=== PATIENT | female | born 1940 | race Two or more races ===

== ENCOUNTER 2016-09-26 16:47 | Inpatient (IN) | payer OTHER ==
[~2016-09-26] VITALS: Ht 162.6 cm; Wt 76.7 kg
[2016-09-26 16:48] VITALS: BP 125/59
[2016-09-26] MEDS ORDERED: Morphine Sulfate 4mg/ml Inj IVP ONE (17:00)
[2016-09-26 17:26] LABS: BASOPHILS % (AUTO) 1.5 % (0.0-2.0); EOSINOPHILS % (AUTO) 12.7 % (0.0-3.0); LYMPHOCYTES % (AUTO) 21.7 % (20.0-45.0); MEAN CORPUSCULAR HEMOGLOBIN 29.4 PG (27.0-31.0); MEAN CORPUSCULAR VOLUME 92 FL (80-99); MEAN PLATELET VOLUME 9.3 FL (6.5-10.1); MONOCYTES % (AUTO) 5.9 % (1.0-10.0); NEUTROPHILS % (AUTO) 58.2 % (45.0-75.0); PLATELET COUNT 140 K/UL (150-450); RED BLOOD COUNT 4.22 M/UL (4.20-5.40); RED CELL DISTRIBUTION WIDTH 13.1 % (11.6-14.8); WHITE BLOOD COUNT 10.4 K/UL (4.8-10.8)
[2016-09-26 17:30] VITALS: BP 122/45
[2016-09-26 17:37] LABS: PROTHROMBIN TIME 10.4 SEC (9.30-11.50)
[2016-09-26 17:46] LABS: TROPONIN I < 0.30 ng/mL (<=0.30)
[2016-09-26 17:47] LABS: ALANINE AMINOTRANSFERASE 33 U/L (3-33); ALBUMIN/GLOBULIN RATIO 1.9 (1.0-2.7); ANION GAP 17 (5-15); ASPARTATE AMINO TRANSFERASE 59 U/L (5-40); CALCIUM 9.2 mg/dL (8.6-10.2); CARBON DIOXIDE 23 mEQ/L (20-30); CHLORIDE 97 mEQ/L (98-107); CREATININE 0.9 mg/dL (0.5-0.9); HEMOLYSIS 4; POTASSIUM 3.8 mEQ/L (3.4-4.9); SODIUM 137 mEQ/L (135-145); TOTAL PROTEIN 6.7 g/dL (6.6-8.7)
[2016-09-26 17:58] LABS: CKMB < 1.5 ng/mL (< 3.8)
[2016-09-26 18:13] LABS: LIPASE 1161 U/L (< 60)
[2016-09-26 18:30] VITALS: BP 129/74
[2016-09-26] MEDS ORDERED: OMEPRAZOLE20 M2 ORAL (18:47)
[2016-09-26] MEDS ORDERED: NITROGLYCERIN0.4 MG SL (18:48)
[2016-09-26 19:28] VITALS: BP 134/61
--- NOTE | 2016-09-26 19:35 | Emergency Room Report ---
History of Present Illness General Chief Complaint: Chest Pain Source: Patient Present Illness HPI Patient is a 76-year-old female who presented after increased epigastric pain and chest pain. Patient prior history of aortic valve replacement. Patient onset of pain approximately one to 2 hours prior to arrival. Patient had no radiation of pain. Patient reported having some nausea without vomiting. She also had some epigastric pain which he describes a sharp sensation. The patient been given aspirin as well as nitroglycerin by paramedics without any change. Patient was subsequently given morphine IV with minimal improvement. Patient was noted to have no recent fever. She had prior history of cholecystectomy. She had a porcine valve placed at [facility]. Allergies: Coded Allergies: PENICILLINS (Verified Allergy, Intermediate, 09/26/16) Patient History Past Medical History: see triage record Now: No Reviewed Nursing Documentation: PMH: Agreed, PSxH: Agreed Nursing Documentation-PMH Hx Cardiac Problems: Yes Review of Systems All Other Systems: negative except mentioned in HPI Physical Exam Vital Signs Date Time Temp Pulse Resp B/P Pulse Ox O2 Delivery O2 Flow Rate FiO2 09/26/16 16:41 16 Nasal Cannula 09/26/16 16:41 98.1 82 100/60 98 Sp02 EP Interpretation: reviewed, normal General Appearance: normal inspection, well appearing, alert, GCS 15, moderate distress Head: atraumatic ENT: normal ENT inspection, hearing grossly normal, normal voice Neck: normal inspection, full range of motion, supple, no bony tend Respiratory: normal inspection, lungs clear, normal breath sounds, no respiratory distress, no retraction, no wheezing Cardiovascular #1: regular rate, rhythm, no edema Gastrointestinal: normal inspection, normal bowel sounds, soft, no guarding, no hernia, tenderness - epigastric tenderness Genitourinary: no CVA tenderness Musculoskeletal: normal inspection, back normal, normal range of motion Neurologic: normal inspection, alert, responsive, speech normal Psychiatric: normal inspection, judgement/insight normal, mood/affect normal Skin: normal inspection, normal color, no rash Medical Decision Making Diagnostic Impression: Primary Impression: Chest pain Additional Impressions: Pancreatitis, acute Aortic valve replaced ER Course Patient is a 76-year-old female who presented after increased chest pain. Patient gradual onset of symptoms over the past one to 2 hours.Differential diagnosis included but was not limited to acute coronary syndrome, pulmonary embolism, pneumonia, aortic dissection, shingles, pneumothorax, aortic dissection, esophageal rupture, pericarditis. Because of complexity of patient' s case laboratory testing and imaging studies were ordered.I laboratory studies were notable for negative troponin as well as elevated lipase. The patient was noted to have prior history of aortic valve replacement. A CT of the chest was performed because of the patient's history of chest pain onset. CT the chest read by radiology showed no evidence of aortic dissection with aortic valve ectasia. There is no evident pulmonary embolism.Patient was given IV fluids as well as IV pain medications. Dr. Rancho Espinal was contacted for inpatient management Labs Test 09/26/16 17:00 09/26/16 21:44 White Blood Count 10.4 K/UL (4.8-10.8) Red Blood Count 4.22 M/UL (4.20-5.40) Hemoglobin 12.4 G/DL (12.0-16.0) Hematocrit 38.7 % (37.0-47.0) Mean Corpuscular Volume 92 FL (80-99) Mean Corpuscular Hemoglobin 29.4 PG (27.0-31.0) Mean Corpuscular Hemoglobin Concent 32.0 G/DL (32.0-36.0) Red Cell Distribution Width 13.1 % (11.6-14.8) Platelet Count 140 K/UL (150-450) Mean Platelet Volume 9.3 FL (6.5-10.1) Neutrophils (%) (Auto) 58.2 % (45.0-75.0) Lymphocytes (%) (Auto) 21.7 % (20.0-45.0) Monocytes (%) (Auto) 5.9 % (1.0-10.0) Eosinophils (%) (Auto) 12.7 % (0.0-3.0) Basophils (%) (Auto) 1.5 % (0.0-2.0) Prothrombin Time 10.4 SEC (9.30-11.50) Prothromb Time International Ratio 1.0 (0.9-1.1) Activated Partial Thromboplast Time 24 SEC (23-33) Sodium Level 137 mEQ/L (135-145) Potassium Level 3.8 mEQ/L (3.4-4.9) Chloride Level 97 mEQ/L (98-107) Carbon Dioxide Level 23 mEQ/L (20-30) Anion Gap 17 (5-15) Blood Urea Nitrogen 19 mg/dL (7-23) Creatinine 0.9 mg/dL (0.5-0.9) Estimat Glomerular Filtration Rate mL/min (>60) Glucose Level 147 mg/dL (74-106) Calcium Level 9.2 mg/dL (8.6-10.2) Total Bilirubin 0.6 mg/dL (0.0-1.2) Aspartate Amino Transf (AST/SGOT) 59 U/L (5-40) Alanine Aminotransferase (ALT/SGPT) 33 U/L (3-33) Alkaline Phosphatase 74 U/L (35-104) Total Creatine Kinase 36 U/L (26-140) Creatine Kinase MB < 1.5 ng/mL (< 3.8) Creatine Kinase MB Relative Index Pro-B-Type Natriuretic Peptide 213 pg/mL (0-450) Total Protein 6.7 g/dL (6.6-8.7) Albumin 4.4 g/dL (3.5-5.2) Globulin 2.3 g/dL Albumin/Globulin Ratio 1.9 (1.0-2.7) Lipase 1161 U/L (< 60) Troponin I < 0.30 ng/mL (<=0.30) EKG Diagnostic Results Rate: normal Rhythm: NSR ST Segments: no acute changes Chest X-Ray Diagnostic Results EP Interpretation: Yes Findings: no consolidation, no effusion, no pneumothorax, no acute cardiopulmonary disease Number of Views: 1 Last Vital Signs Date Time Temp Pulse Resp B/P Pulse Ox O2 Delivery O2 Flow Rate FiO2 09/26/16 17:33 98.1 09/26/16 16:48 82 18 Room Air 09/26/16 16:48 125/59 99 Status: unchanged Disposition: ADMITTED INPATIENT Condition: Serious Referrals: NON PHYSICIAN (PCP) Keny Spear Sep 26, 2016 19:35
[2016-09-26] MEDS ORDERED: Miralax 17gm pkt ORAL PRN (20:15)
[2016-09-26] MEDS ORDERED: DuoNeb 0.5-3(2.5)mg/3ml neb HHN PRN (20:15)
[2016-09-26] MEDS ORDERED: Morphine Sulfate 2mg/ml Inj IVP PRN (20:15)
[2016-09-26] MEDS ORDERED: Nitroglycerin Subl 0.4mg tab (Bottle Of 25) SL PRN (20:15)
[2016-09-26] MEDS ORDERED: Diltiazem 25mg/5ml IV PRN (20:15)
[2016-09-26] MEDS ORDERED: Ketorolac 30mg Inj IV PRN (20:15)
[2016-09-26] MEDS ORDERED: Enalaprilat 2.5mg/2ml Inj IV PRN (20:15)
[2016-09-26 21:10] VITALS: BP 137/78
[2016-09-26] MEDS: Heparin 5000 units/ml inj SUBQ SCH (21:41)
[2016-09-26 21:59] LABS: TROPONIN I < 0.30 ng/mL (<=0.30)
[2016-09-27 00:20] VITALS: BP 99/64
[2016-09-27 04:00] VITALS: BP 120/72
[2016-09-27 05:21] LABS: BASOPHILS % (AUTO) 0.9 % (0.0-2.0); EOSINOPHILS % (AUTO) 7.8 % (0.0-3.0); LYMPHOCYTES % (AUTO) 12.7 % (20.0-45.0); MEAN CORPUSCULAR HEMOGLOBIN 29.5 PG (27.0-31.0); MEAN CORPUSCULAR HGB CONC 32.7 G/DL (32.0-36.0); MEAN CORPUSCULAR VOLUME 90 FL (80-99); MEAN PLATELET VOLUME 10.1 FL (6.5-10.1); NEUTROPHILS % (AUTO) 73.6 % (45.0-75.0); PLATELET COUNT 120 K/UL (150-450); RED BLOOD COUNT 4.32 M/UL (4.20-5.40); WHITE BLOOD COUNT 8.7 K/UL (4.8-10.8)
[2016-09-27 05:26] LABS: PROTHROMBIN TIME 10.1 SEC (9.30-11.50)
[2016-09-27 05:34] LABS: TROPONIN I < 0.30 ng/mL (<=0.30)
[2016-09-27 05:42] LABS: CRP QUANT 0.9 mg/dL (< 0.5)
[2016-09-27 05:48] LABS: THYROID STIMULATING HORMONE 4.31 uIU/mL (0.300-4.500)
[2016-09-27 07:28] VITALS: BP 133/68
[2016-09-27] MEDS: Heparin 5000 units/ml inj SUBQ SCH ×2 (08:02→20:58)
[2016-09-27] MEDS: Aspirin Baby 81mg ORAL SCH (08:03)
--- NOTE | 2016-09-27 09:44 | Diagnostic Imaging Report ---
Indications: Chest pain Technique: Portable AP chest Findings: Comparison: None Suboptimal inspiration limits evaluation. Cardiac silhouette partially obscured. Pulmonary vasculature within normal limits. Is less portions of lungs and pleura clear except for suggestion of linear density left base. Sternal wires, aortic valve prosthesis, aortic arch calcification. IMPRESSION: Suggestion of subsegmental atelectasis versus scarring left lung base No other evidence of acute disease, limited as described. Upright PA and lateral chest radiographs with better inspiratory effort and optimal technique recommended for more complete evaluation. Previous open heart surgery with aortic valve replacement Aortosclerosis
[2016-09-27 10:51] LABS: TROPONIN I < 0.30 ng/mL (<=0.30)
[2016-09-27 11:27] VITALS: BP 133/76
--- NOTE | 2016-09-27 13:55 | History & Physical ---
History and Physical History & Physicial Dictated for Int Med-Dr sEpinal no. [id number]. TESHA HATFIELD Sep 27, 2016 13:55
--- NOTE | 2016-09-27 13:58 | Cardiac Electrophysiology PN ---
Subjective Subjective [id number] Objective Last 24 Hour Vital Signs Date Time Temp Pulse Resp B/P Pulse Ox O2 Delivery O2 Flow Rate FiO2 09/27/16 12:00 61 09/27/16 11:27 97.7 67 18 133/76 97 Room Air 09/27/16 08:00 67 09/27/16 07:28 97.0 68 18 133/68 99 Room Air 09/27/16 04:00 97.7 58 20 120/72 95 Room Air 09/27/16 04:00 55 09/27/16 00:20 97.3 77 20 99/64 93 Room Air 09/27/16 00:00 75 09/26/16 22:32 96.8 09/26/16 21:10 96.3 72 20 137/78 97 Room Air 09/26/16 19:41 98.1 78 19 134/61 99 Nasal Cannula 2.0 09/26/16 19:28 78 19 134/61 99 Nasal Cannula 2.0 09/26/16 18:30 81 16 129/74 99 Room Air 09/26/16 17:33 98.1 09/26/16 17:30 89 19 122/45 99 Room Air 09/26/16 16:48 82 18 Room Air 09/26/16 16:48 98.1 88 18 125/59 99 Room Air 09/26/16 16:45 61 18 125/59 99 Room Air 09/26/16 16:41 98.1 82 16 100/60 98 Nasal Cannula 09/26/16 16:41 16 Nasal Cannula Laboratory Tests Test 09/26/16 17:00 09/26/16 21:44 09/27/16 04:45 09/27/16 10:10 White Blood Count 10.4 K/UL (4.8-10.8) 8.7 K/UL (4.8-10.8) Red Blood Count 4.22 M/UL (4.20-5.40) 4.32 M/UL (4.20-5.40) Hemoglobin 12.4 G/DL (12.0-16.0) 12.8 G/DL (12.0-16.0) Hematocrit 38.7 % (37.0-47.0) 39.1 % (37.0-47.0) Mean Corpuscular Volume 92 FL (80-99) 90 FL (80-99) Mean Corpuscular Hemoglobin 29.4 PG (27.0-31.0) 29.5 PG (27.0-31.0) Mean Corpuscular Hemoglobin Concent 32.0 G/DL (32.0-36.0) 32.7 G/DL (32.0-36.0) Red Cell Distribution Width 13.1 % (11.6-14.8) 13.0 % (11.6-14.8) Platelet Count 140 K/UL (150-450) L 120 K/UL (150-450) L Mean Platelet Volume 9.3 FL (6.5-10.1) 10.1 FL (6.5-10.1) Neutrophils (%) (Auto) 58.2 % (45.0-75.0) 73.6 % (45.0-75.0) Lymphocytes (%) (Auto) 21.7 % (20.0-45.0) 12.7 % (20.0-45.0) L Monocytes (%) (Auto) 5.9 % (1.0-10.0) 5.0 % (1.0-10.0) Eosinophils (%) (Auto) 12.7 % (0.0-3.0) H 7.8 % (0.0-3.0) H Basophils (%) (Auto) 1.5 % (0.0-2.0) 0.9 % (0.0-2.0) Prothrombin Time 10.4 SEC (9.30-11.50) 10.1 SEC (9.30-11.50) Prothromb Time International Ratio 1.0 (0.9-1.1) 1.0 (0.9-1.1) Activated Partial Thromboplast Time 24 SEC (23-33) 24 SEC (23-33) Sodium Level 137 mEQ/L (135-145) Potassium Level 3.8 mEQ/L (3.4-4.9) Chloride Level 97 mEQ/L (98-107) L Carbon Dioxide Level 23 mEQ/L (20-30) Anion Gap 17 (5-15) H Blood Urea Nitrogen 19 mg/dL (7-23) Creatinine 0.9 mg/dL (0.5-0.9) Estimat Glomerular Filtration Rate mL/min (>60) Glucose Level 147 mg/dL (74-106) H Calcium Level 9.2 mg/dL (8.6-10.2) Total Bilirubin 0.6 mg/dL (0.0-1.2) Aspartate Amino Transf (AST/SGOT) 59 U/L (5-40) H Alanine Aminotransferase (ALT/SGPT) 33 U/L (3-33) Alkaline Phosphatase 74 U/L (35-104) Total Creatine Kinase 36 U/L (26-140) Creatine Kinase MB < 1.5 ng/mL (< 3.8) Creatine Kinase MB Relative Index Troponin I < 0.30 ng/mL (<=0.30) < 0.30 ng/mL (<=0.30) < 0.30 ng/mL (<=0.30) < 0.30 ng/mL (<=0.30) Pro-B-Type Natriuretic Peptide 213 pg/mL (0-450) Total Protein 6.7 g/dL (6.6-8.7) Albumin 4.4 g/dL (3.5-5.2) Globulin 2.3 g/dL Albumin/Globulin Ratio 1.9 (1.0-2.7) Lipase 1161 U/L (< 60) H C-Reactive Protein, Quantitative 0.9 mg/dL (< 0.5) H Triglycerides Level 91 mg/dL (< 150) Cholesterol Level Pending LDL Cholesterol Pending HDL Cholesterol 62 mg/dL (> 60) H Cholesterol/HDL Ratio Pending Thyroid Stimulating Hormone (TSH) 4.310 uIU/mL (0.300-4.500) WESTON PETTIT Sep 27, 2016 13:57
[2016-09-27 15:27] LABS: CHOLESTEROL/HDL RATIO 2.9 (3.3-4.4)
--- NOTE | 2016-09-27 15:45 | Consultation ---
History of Present Illness General Date patient seen: Sep 27, 2016 Time patient seen: 15:00 Chief Complaint: Chest Pain Referring physician: dr Espinal Reason for Consultation: inpatient management Present Illness HPI 76-year-old female presented with increased epigastric and chest pain. prior history of aortic valve replacement. Onset of pain approximately one to 2 hours prior to arrival pain nonradiating, sharp reported nausea without vomiting. given aspirin as well as nitroglycerin by paramedics without any change. Patient was subsequently given morphine IV with minimal improvement. No fever, no chills . work up in ED revealed lipase 1161 afebrile, no leucocytosis, stable LFT troponin negate ECG SR, no ischemic changes CTA chest in ED did not revealed any evidence of PE, no aortic dissection in ED started on IVF, analgesics given patient admitted to tele for further management Allergies: Coded Allergies: PENICILLINS (Verified Allergy, Intermediate, 09/26/16) Medication History Scheduled Omeprazole (Omeprazole), 20 MG ORAL DAILY, (Reported) Miscellaneous Medications Nitroglycerin (Nitroglycerin), 0.4 MG SL, (Reported) Patient History Healthcare decision maker Resuscitation status Full Code Advanced Directive on File No Past Medical/Surgical History Past Medical/Surgical History: (1) History of mitral valve replacement with porcine valve (2) HTN (hypertension) Review of Systems Constitutional: Reports: weakness Eye: Reports: no symptoms ENT: Reports: no symptoms Respiratory: Reports: cough, shortness of breath Cardiovascular: Reports: chest pain, see HPI Gastrointestinal: Reports: abdominal pain, see HPI Musculoskeletal: Reports: muscle pain Skin: Reports: no symptoms Psychiatric: Reports: no symptoms Endocrine: Reports: no symptoms Hematologic/Lymphatic: Reports: no symptoms Physical Exam General Appearance: no apparent distress, alert Lines, tubes and drains: peripheral HEENT: normocephalic, atraumatic, anicteric Neck: supple, normal inspection Respiratory/Chest: lungs clear, no respiratory distress, no accessory muscle use, other - chest wall reproducible on palpation left side Cardiovascular/Chest: normal peripheral pulses, normal rate, regular rhythm Abdomen: normal bowel sounds, non tender, soft Extremities: non-tender, no calf tenderness Skin Exam: warm/dry Neurologic: alert, oriented x 3, responsive Musculoskeletal: normal muscle bulk Last 24 Hour Vital Signs Date Time Temp Pulse Resp B/P Pulse Ox O2 Delivery O2 Flow Rate FiO2 09/27/16 12:00 61 09/27/16 11:27 97.7 67 18 133/76 97 Room Air 09/27/16 08:00 67 09/27/16 07:28 97.0 68 18 133/68 99 Room Air 09/27/16 04:00 97.7 58 20 120/72 95 Room Air 09/27/16 04:00 55 09/27/16 00:20 97.3 77 20 99/64 93 Room Air 09/27/16 00:00 75 09/26/16 22:32 96.8 09/26/16 21:10 96.3 72 20 137/78 97 Room Air 09/26/16 19:41 98.1 78 19 134/61 99 Nasal Cannula 2.0 09/26/16 19:28 78 19 134/61 99 Nasal Cannula 2.0 09/26/16 18:30 81 16 129/74 99 Room Air 09/26/16 17:33 98.1 09/26/16 17:30 89 19 122/45 99 Room Air 09/26/16 16:48 82 18 Room Air 09/26/16 16:48 98.1 88 18 125/59 99 Room Air 09/26/16 16:45 61 18 125/59 99 Room Air 09/26/16 16:41 98.1 82 16 100/60 98 Nasal Cannula 09/26/16 16:41 16 Nasal Cannula Laboratory Tests Test 09/26/16 17:00 09/26/16 21:44 09/27/16 04:45 09/27/16 10:10 White Blood Count 10.4 K/UL (4.8-10.8) 8.7 K/UL (4.8-10.8) Red Blood Count 4.22 M/UL (4.20-5.40) 4.32 M/UL (4.20-5.40) Hemoglobin 12.4 G/DL (12.0-16.0) 12.8 G/DL (12.0-16.0) Hematocrit 38.7 % (37.0-47.0) 39.1 % (37.0-47.0) Mean Corpuscular Volume 92 FL (80-99) 90 FL (80-99) Mean Corpuscular Hemoglobin 29.4 PG (27.0-31.0) 29.5 PG (27.0-31.0) Mean Corpuscular Hemoglobin Concent 32.0 G/DL (32.0-36.0) 32.7 G/DL (32.0-36.0) Red Cell Distribution Width 13.1 % (11.6-14.8) 13.0 % (11.6-14.8) Platelet Count 140 K/UL (150-450) L 120 K/UL (150-450) L Mean Platelet Volume 9.3 FL (6.5-10.1) 10.1 FL (6.5-10.1) Neutrophils (%) (Auto) 58.2 % (45.0-75.0) 73.6 % (45.0-75.0) Lymphocytes (%) (Auto) 21.7 % (20.0-45.0) 12.7 % (20.0-45.0) L Monocytes (%) (Auto) 5.9 % (1.0-10.0) 5.0 % (1.0-10.0) Eosinophils (%) (Auto) 12.7 % (0.0-3.0) H 7.8 % (0.0-3.0) H Basophils (%) (Auto) 1.5 % (0.0-2.0) 0.9 % (0.0-2.0) Prothrombin Time 10.4 SEC (9.30-11.50) 10.1 SEC (9.30-11.50) Prothromb Time International Ratio 1.0 (0.9-1.1) 1.0 (0.9-1.1) Activated Partial Thromboplast Time 24 SEC (23-33) 24 SEC (23-33) Sodium Level 137 mEQ/L (135-145) Potassium Level 3.8 mEQ/L (3.4-4.9) Chloride Level 97 mEQ/L (98-107) L Carbon Dioxide Level 23 mEQ/L (20-30) Anion Gap 17 (5-15) H Blood Urea Nitrogen 19 mg/dL (7-23) Creatinine 0.9 mg/dL (0.5-0.9) Estimat Glomerular Filtration Rate mL/min (>60) Glucose Level 147 mg/dL (74-106) H Calcium Level 9.2 mg/dL (8.6-10.2) Total Bilirubin 0.6 mg/dL (0.0-1.2) Aspartate Amino Transf (AST/SGOT) 59 U/L (5-40) H Alanine Aminotransferase (ALT/SGPT) 33 U/L (3-33) Alkaline Phosphatase 74 U/L (35-104) Total Creatine Kinase 36 U/L (26-140) Creatine Kinase MB < 1.5 ng/mL (< 3.8) Creatine Kinase MB Relative Index Troponin I < 0.30 ng/mL (<=0.30) < 0.30 ng/mL (<=0.30) < 0.30 ng/mL (<=0.30) < 0.30 ng/mL (<=0.30) Pro-B-Type Natriuretic Peptide 213 pg/mL (0-450) Total Protein 6.7 g/dL (6.6-8.7) Albumin 4.4 g/dL (3.5-5.2) Globulin 2.3 g/dL Albumin/Globulin Ratio 1.9 (1.0-2.7) Lipase 1161 U/L (< 60) H C-Reactive Protein, Quantitative 0.9 mg/dL (< 0.5) H Triglycerides Level 91 mg/dL (< 150) Cholesterol Level 180 mg/dL (< 200) LDL Cholesterol 100 mg/dL (60-99) H HDL Cholesterol 62 mg/dL (> 60) H Cholesterol/HDL Ratio 2.9 (3.3-4.4) L Thyroid Stimulating Hormone (TSH) 4.310 uIU/mL (0.300-4.500) Height (Feet): 5 Height (Inches): 4.00 Weight (Pounds): 169 Medications Current Medications Medications (Trade) Dose Ordered Sig/Jaxon Route PRN Reason Start Time Stop Time Status Last Admin Dose Admin Acetaminophen (Tylenol) 650 mg Q4H PRN ORAL FEVER 09/26/16 20:15 10/26/16 20:14 09/27/16 03:17 Albuterol/ Ipratropium (DuoNeb 0.5-3(2.5)mg/3ml) 3 ml EVERY 4 HOURS PRN HHN Shortness of Breath 09/26/16 20:15 10/01/16 20:14 Aspirin (ASA) 162 mg DAILY ORAL 09/27/16 09:00 10/27/16 08:59 09/27/16 08:03 Diltiazem HCl (Cardizem) 10 mg EVERY HOUR PRN IV heart rate more than 120, 09/26/16 20:15 10/26/16 20:14 Enalaprilat (Vasotec) 2.5 mg EVERY 6 HOURS PRN IV sbp more than 160 09/26/16 20:15 10/26/16 20:14 Heparin Sodium (Porcine) (Heparin 5000 units/ml) 5,000 units EVERY 12 HOURS SUBQ 09/26/16 21:00 10/26/16 20:59 09/26/16 21:41 Ketorolac Tromethamine (Toradol 30mg) 30 mg Q6HR PRN IV moderate pain ( 4-6) 09/26/16 20:15 10/01/16 20:14 Morphine Sulfate (Morphine Sulfate) 2 mg EVERY 4 HOURS PRN IVP severe Pain (Pain Scale 7-10) 09/26/16 20:15 10/03/16 20:14 Nitroglycerin (Ntg) 0.4 mg q 5 mins PRN SL Prn Chest Pain 09/26/16 20:15 10/26/16 20:14 Ondansetron HCl (Zofran) 4 mg Q6H PRN IVP Nausea & Vomiting 09/26/16 20:15 10/26/16 20:14 Pantoprazole (Protonix) 40 mg DAILY ORAL 09/27/16 09:00 10/27/16 08:59 09/27/16 08:03 Polyethylene Glycol (Miralax) 17 gm DAILYPRN PRN ORAL Constipation 09/26/16 20:15 10/26/16 20:14 Temazepam (Restoril) 15 mg HSPRN PRN ORAL Insomnia 09/26/16 20:15 10/03/16 20:14 09/26/16 21:34 Assessment/Plan Assessment/Plan ASSESSMENT chest wall pain epigastric pain chemical pancreatitis Hx of mitral valve replacement HTN PLAN OF CARE tele chest wall pain reproducible on palpation- serial troponin negative , no ischemic changes, therefore ruled out for acute SC cardio follows continue ASA ECHO O2 HHN prn Pain management GI follows CT A/P pending ? cause of chemical pancreatitis trend lipase diet change to liquid lipid panel with borderline LDL, no changes to account for high lipase antiemetic prn DVT, GI prophylaxis case discussed and evaluated by supervising physician [place] (Camille),Angela REED Sep 27, 2016 15:45
[2016-09-27 16:00] VITALS: BP 114/71
--- NOTE | 2016-09-27 16:58 | Consultation ---
DATE OF CONSULTATION: 09/27/2016 CONSULTING PHYSICIAN: Gary Acharya M.D. REFERRING PHYSICIAN: Delete if not dictated CHIEF COMPLAINT: Abdominal pain and chest pain. HISTORY OF PRESENT ILLNESS: This is a very pleasant 76-year-old female with past medical history of mitral valve replacement in 2013 and history of hypertension who was admitted to the the hospital with complaint of epigastric abdominal pain associated with nausea and chest pain. According to the patient, she never had this kind of pain before. The patient has a history of cardiac surgery as I mentioned above. No prior history of endoscopy or colonoscopy recently. No GI bleeding. PAST MEDICAL HISTORY: 1. History of mitral valve replacement. 2. Hypertension. ALLERGIES: Penicillin. MEDICATIONS: Please see medication reconciliation list. SOCIAL HISTORY: The patient denies any tobacco, alcohol, or drug abuse. FAMILY HISTORY: Noncontributory. REVIEW OF SYSTEMS: A 10-point review of systems was performed and pertinent positives in history of present illness. PAST SURGICAL HISTORY: Mitral valve replacement. PHYSICAL EXAMINATION: GENERAL: This is a well-developed female, in no acute distress. VITAL SIGNS: Temperature 97, pulse 60, respiratory rate 18, and blood pressure is 133/68. HEENT: Normocephalic and atraumatic. Sclerae nonicteric. NECK: Supple. No evidence of lymphadenopathy. CARDIOVASCULAR: Regular rhythm. Plus S1 and S2. There is a scar in the midline from prior cardiac surgery. LUNGS: Decreased breath sounds bilaterally on supine examination. ABDOMEN: Soft. Bowel sounds are present. Diffuse tenderness to palpation in the epigastric area. No rebound. No guarding. No peritoneal signs. EXTREMITIES: No cyanosis, no clubbing, and no edema. LABORATORY DATA: Lipase was 1161. Liver function, AST was 59, otherwise negative. ASSESSMENT: This is a 76-year-old female with epigastric abdominal pain, nausea, elevated lipase, and evidence of chemical pancreatitis. PLAN: Change her diet from regular to liquid diet. Repeat labs for tomorrow. Follow lipid panel. Order CT of the abdomen and pelvis with contrast for evaluation of cause of pancreatitis. Possibility of having gallstone pancreatitis given elevated liver enzymes a little bit and epigastric pain. So, we are going to get a CT. Repeat labs. Change her diet. Monitor pain. IV fluids for hydration. We will follow. Garyebonie Acharya M.D. DR: LAKIA JOB#: [id number] CC:
[2016-09-27 20:00] VITALS: BP 133/86
--- NOTE | 2016-09-27 20:08 | History and Physical Report ---
DATE OF ADMISSION: 09/26/2016 CHIEF COMPLAINT: The patient is a 76-year-old female, who presents with chief complaint chest pain, nausea, and vomiting. HISTORY OF PRESENT ILLNESS: The patient has a history of aortic valve replacement. The patient states she was reading a book yesterday. The patient states she began to experience left-sided chest pain. There was no radiation to the jaw to the left shoulder. There was radiation to the right upper quadrant. The patient states she also had nausea with vomiting. The patient also had diaphoresis. The patient presented to [place] emergency room. The patient was found to have lipase greater than 1000. The patient was admitted for chest pain to rule out acute pancreatitis versus acute myocardial infarction. REVIEW OF SYSTEMS: Constitutional: The patient denies weight loss or weight gain. The patient denies fevers or chills. HEENT: The patient denies ear or throat pain. The patient denies headache. Cardiovascular: The patient complains of chest pain as above. The patient denies palpitations. Abdomen: The patient complains of nausea and vomiting as above. The patient denies diarrhea or constipation. Genitourinary: The patient denies dysuria or increased frequency of urination. Neuromuscular: The patient denies seizures or generalized weakness. PAST MEDICAL HISTORY: Significant for, 1. Aortic valve disease. 2. Hypertension. PAST SURGICAL HISTORY: Significant for, 1. Aortic valve replacement in 2012 at [facility]. 2. section x1. 3. Cholecystectomy. 4. History of renal calculi. 5. History of benign thyroid tumor. CURRENT MEDICATIONS: 1. Nitroglycerin 0.4 mg sublingual as needed. 2. Omeprazole 20 mg one tablet p.o. daily. 3. Multivitamin daily. 4. Iron supplement daily. 5. Calcium daily. 6. Lorazepam 1 mg p.o. at bedtime as needed insomnia. ALLERGIES: Penicillin. SOCIAL HISTORY: The patient is for many years. The patient lives with her grown daughter. The patient denies tobacco use having quit in 1986. The patient admits to rare alcohol use. PHYSICAL EXAMINATION: VITAL SIGNS: Temperature 97.3, respirations 20, pulse 77, and blood pressure 99/64. GENERAL: The patient is well developed, well nourished, female, in no apparent distress. HEENT: Eyes, pupils are equal and responsive to light and accommodation. Extraocular movements are intact. NECK: Supple without lymphadenopathy. CHEST: Lungs are clear to auscultation bilaterally without wheezes or rales. CARDIOVASCULAR: Regular rate and rhythm. S1 and S2 noted without murmurs, rubs, or gallops. ABDOMEN: Soft. Tender to palpation in the right upper quadrant. No rebound or guarding. EXTREMITIES: Negative for clubbing, cyanosis, or edema. RECTAL/GENITALIA: Refused. NEUROLOGIC: Cranial nerves II through XII are grossly intact without focal deficits. Motor strength is 5/5 bilaterally. Deep tendon reflexes are 2+. LABORATORY AND DIAGNOSTIC DATA: WBC 10.4, hemoglobin 12.5, hematocrit 38.7, and platelets 140,000. Sodium 137, potassium 3.8, chloride 97, CO2 23, BUN 19, creatinine 0.9, and glucose 147. AST elevated at 59, lipase elevated at 1161. Chest x-ray revealed prosthetic aortic valve. Otherwise, without acute disease. ASSESSMENT: This is a 76-year-old female. 1. Chest pain. 2. Right upper quadrant pain. 3. Pancreatitis. 4. Hypertension. 5. Gastroesophageal reflux disease. TREATMENT: 1. Chest pain. A Cardiology consultation is pending with Dr. Darvin George. Serial troponin levels will be run. The patient does have a history of aortic valve replacement. A Cardiolite stress test is pending. We will follow recommendations of Cardiology. 2. Right upper quadrant pain/pancreatitis. A Gastroenterology consultation is pending with Dr. Gary Acharya. A CT scan of the abdomen is pending. 3. Hypertension. The patient is currently hypotensive. 4. Gastroesophageal reflux disease. The patient has been started empirically on Protonix. Jere Olson M.D. DR: TRIP JOB#: [id number] CC:
--- NOTE | 2016-09-27 21:32 | Cardiology Progress Note ---
Assessment/Plan Assessment/Plan The patient is seen and examined, full consult note will be dictated. Objective Last 24 Hour Vital Signs Date Time Temp Pulse Resp B/P Pulse Ox O2 Delivery O2 Flow Rate FiO2 09/27/16 16:00 70 09/27/16 16:00 98.0 67 18 114/71 98 Room Air 09/27/16 12:00 61 09/27/16 11:27 97.7 67 18 133/76 97 Room Air 09/27/16 08:00 67 09/27/16 07:28 97.0 68 18 133/68 99 Room Air 09/27/16 04:00 97.7 58 20 120/72 95 Room Air 09/27/16 04:00 55 09/27/16 00:20 97.3 77 20 99/64 93 Room Air 09/27/16 00:00 75 09/26/16 22:32 96.8 Laboratory Tests Test 09/26/16 21:44 09/27/16 04:45 09/27/16 10:10 Troponin I < 0.30 ng/mL (<=0.30) < 0.30 ng/mL (<=0.30) < 0.30 ng/mL (<=0.30) White Blood Count 8.7 K/UL (4.8-10.8) Red Blood Count 4.32 M/UL (4.20-5.40) Hemoglobin 12.8 G/DL (12.0-16.0) Hematocrit 39.1 % (37.0-47.0) Mean Corpuscular Volume 90 FL (80-99) Mean Corpuscular Hemoglobin 29.5 PG (27.0-31.0) Mean Corpuscular Hemoglobin Concent 32.7 G/DL (32.0-36.0) Red Cell Distribution Width 13.0 % (11.6-14.8) Platelet Count 120 K/UL (150-450) L Mean Platelet Volume 10.1 FL (6.5-10.1) Neutrophils (%) (Auto) 73.6 % (45.0-75.0) Lymphocytes (%) (Auto) 12.7 % (20.0-45.0) L Monocytes (%) (Auto) 5.0 % (1.0-10.0) Eosinophils (%) (Auto) 7.8 % (0.0-3.0) H Basophils (%) (Auto) 0.9 % (0.0-2.0) Prothrombin Time 10.1 SEC (9.30-11.50) Prothromb Time International Ratio 1.0 (0.9-1.1) Activated Partial Thromboplast Time 24 SEC (23-33) C-Reactive Protein, Quantitative 0.9 mg/dL (< 0.5) H Triglycerides Level 91 mg/dL (< 150) Cholesterol Level 180 mg/dL (< 200) LDL Cholesterol 100 mg/dL (60-99) H HDL Cholesterol 62 mg/dL (> 60) H Cholesterol/HDL Ratio 2.9 (3.3-4.4) L Thyroid Stimulating Hormone (TSH) 4.310 uIU/mL (0.300-4.500) WESTON FOLEY Sep 27, 2016 21:32
--- NOTE | 2016-09-27 21:48 | Consultation ---
DATE OF CONSULTATION: CARDIOLOGY CONSULTATION CONSULTING PHYSICIAN: Saqib Piña M.D. REFERRING PHYSICIAN: Rancho Espinal M.D. REASON FOR CONSULTATION: Chest pain in the patient with history of heart surgery. HISTORY OF PRESENT ILLNESS: The patient is a 76-year-old lady with history of hypertension and aortic valve replacement, who presented to the hospital with two hours of chest pain. The pain does not have any radiation and the patient was nauseous, but did not have any vomiting. The pain was epigastric. The patient received aspirin and nitroglycerin by paramedics without any significant change. The patient received intravenous morphine that caused minimal improvement. The patient was admitted and a Cardiology consultation was obtained for further evaluation and management. REVIEW OF SYSTEMS: Review of systems was thoroughly performed and was negative other than what was mentioned in the history of present illness. PAST MEDICAL HISTORY: 1. Hypertension. 2. History of aortic valve replacement at [facility]. FAMILY HISTORY: Noncontributory. SOCIAL HISTORY: She lives at home. Does not smoke or drink alcohol. PHYSICAL EXAMINATION: VITAL SIGNS: Blood pressure is 100/60, pulse is 55, respirations 18, and she is afebrile. HEAD AND NECK: Showed no JVD or carotid bruits. LUNGS: Decreased breath sounds. CARDIOVASCULAR: Shows regular S1 and S2 with no gallop. Bradycardic. ABDOMEN: Soft. EXTREMITIES: Have no pitting edema. LABORATORY AND DIAGNOSTIC DATA: Sternotomy is intact. CT of the chest reveals no evidence of pulmonary embolism. Her EKG showed sinus bradycardia at a rate of 45 with first-degree AV block millisecond and nonspecific ST-T wave abnormalities. Her labs show white count of 8.7, hemoglobin 12.8, hematocrit 39.1, and platelet count of 120,000. Troponin negative x4. Sodium 137, potassium 3.8, BUN of 19, creatinine 0.9, and glucose 147. ASSESSMENT AND PLAN: 1. Atypical chest pain. The patient was ruled out for myocardial infarction by serial cardiac enzymes. EKG showed nonspecific ST-T wave abnormalities. Schedule the patient for echocardiogram and nuclear stress test for further evaluation. 2. Bradycardia on EKG showed heart rate of 45 with first-degree AV block. The patient is off beta kelsie. Continue to monitor the patient on telemetry. The patient off of any AV pooja blocking agent. 3. History of aortic valve replacement. Again, I would get echocardiogram for further valve evaluation. Thank you very much, Dr. Espinal and Dr. Olson, for allowing me to participate in the care of this patient. Please do not hesitate to contact me for any questions regarding my evaluation. Saqib Piña M.D. DR: CAITLIN JOB#: [id number] CC:
[2016-09-28] VITALS: BP 114/71
[2016-09-28 04:00] VITALS: BP 126/69
[2016-09-28 07:43] LABS: MEAN CORPUSCULAR HEMOGLOBIN 29.3 PG (27.0-31.0); MEAN CORPUSCULAR HGB CONC 32.2 G/DL (32.0-36.0); MEAN CORPUSCULAR VOLUME 91 FL (80-99); MEAN PLATELET VOLUME 10.1 FL (6.5-10.1); PLATELET COUNT 127 K/UL (150-450); RED BLOOD COUNT 4.42 M/UL (4.20-5.40); RED CELL DISTRIBUTION WIDTH 13.3 % (11.6-14.8); WHITE BLOOD COUNT 5.8 K/UL (4.8-10.8)
[2016-09-28 08:00] VITALS: BP 130/66
[2016-09-28 08:10] LABS: TROPONIN I < 0.30 ng/mL (<=0.30)
[2016-09-28 08:13] LABS: ALANINE AMINOTRANSFERASE 49 U/L (3-33); ALBUMIN/GLOBULIN RATIO 1.7 (1.0-2.7); AMYLASE 40 U/L (10-110); ANION GAP 15 (5-15); ASPARTATE AMINO TRANSFERASE 27 U/L (5-40); CALCIUM 9.1 mg/dL (8.6-10.2); CARBON DIOXIDE 27 mEQ/L (20-30); CHLORIDE 103 mEQ/L (98-107); CREATININE 0.9 mg/dL (0.5-0.9); HEMOLYSIS 4; LIPASE 15 U/L (< 60); POTASSIUM 4.7 mEQ/L (3.4-4.9); SODIUM 145 mEQ/L (135-145); TOTAL PROTEIN 6.7 g/dL (6.6-8.7)
--- NOTE | 2016-09-28 08:58 | Diagnostic Imaging Report ---
CT Abdomen/Pelvis with and without Intravenous Contrast INDICATION: Abdominal pain. COMPARISON: None available. TECHNIQUE: Serial axial images were obtained from the lung bases through the symphysis pubis after intravenous administration of contrast. Coronal and sagittal reformats were obtained. Dose Estimate: Total DLP 928 mGycm CTDIvol 19 mGy FINDINGS: The visualized lung bases exhibit moderate atelectasis or scarring. The heart appears enlarged with a prosthetic aortic valve in place. Small hiatal hernia noted. Please refer to the recently performed chest CTA report. Sub-5 mm low attenuation liver lesions are nonspecific. The liver is otherwise unremarkable. The gallbladder is not visualized and likely surgically absent. The pancreas and adrenal glands are unremarkable. The spleen is mildly enlarged measuring 11.7 cm in craniocaudal dimension. No calculus is identified within either kidney, along the expected course of the ureters or within the urinary bladder. There is no evidence of hydronephrosis or asymmetric perirenal inflammatory change. The urinary bladder is grossly unremarkable. The pelvic organs are grossly unremarkable. Scattered colonic diverticulosis without evidence of acute diverticulitis. The visualized bowel are otherwise grossly unremarkable. There is no evidence of obstruction. There is no extraluminal gas or fluid. There are no enlarged lymph nodes. Small fat filled supraumbilical hernia measuring 2 x 1 cm is noted. There is moderate calcified atherosclerotic disease of the the abdominal aorta. The osseous structures are unremarkable. Impression: 1. No evidence of acute intra-abdominal or pelvic pathology. 2. Mild splenomegaly. 3. Status post cholecystectomy. 4. Colonic diverticulosis without evidence of acute diverticulitis. 5. Atherosclerotic vascular disease. 6. Please refer to the recently performed chest CTA report.
[2016-09-28] MEDS: Aspirin Baby 81mg ORAL SCH (09:05)
[2016-09-28] MEDS: Heparin 5000 units/ml inj SUBQ SCH ×2 (09:09→20:52)
--- NOTE | 2016-09-28 09:50 | General Progress Note ---
Assessment/Plan Problem List: (1) Chest pain ICD Codes: R07.9 - Chest pain, unspecified SNOMED: 05907838 (2) HTN (hypertension) ICD Codes: I10 - Essential (primary) hypertension SNOMED: 90883813 (3) History of mitral valve replacement with porcine valve ICD Codes: Z95.3 - Presence of xenogenic heart valve SNOMED: 78700897, 72125212, 159422039, [id number] Assessment/Plan pend stress test for tomorrow CT reviewed consider GI procedures post stress test if cleared by cardiology Subjective ROS Limited/Unobtainable: Yes Allergies: Coded Allergies: PENICILLINS (Verified Allergy, Intermediate, 09/26/16) Subjective c/o CP Objective Last 24 Hour Vital Signs Date Time Temp Pulse Resp B/P Pulse Ox O2 Delivery O2 Flow Rate FiO2 09/28/16 08:00 97.0 62 17 130/66 98 Room Air 09/28/16 04:00 97.2 56 20 126/69 95 Room Air 2.0 09/28/16 03:41 55 09/28/16 00:00 97.7 58 20 114/71 95 Room Air 09/27/16 23:47 61 09/27/16 20:00 97.9 79 20 133/86 95 Room Air 09/27/16 19:52 61 09/27/16 19:52 61 09/27/16 16:00 70 09/27/16 16:00 98.0 67 18 114/71 98 Room Air 09/27/16 12:00 61 09/27/16 11:27 97.7 67 18 133/76 97 Room Air Laboratory Tests 09/27/16 10:10: Troponin I < 0.30 09/28/16 06:11: Troponin I < 0.30, White Blood Count 5.8, Red Blood Count 4.42, Hemoglobin 13.0 , Hematocrit 40.2, Mean Corpuscular Volume 91, Mean Corpuscular Hemoglobin 29.3 , Mean Corpuscular Hemoglobin Concent 32.2, Red Cell Distribution Width 13.3, Platelet Count 127L, Mean Platelet Volume 10.1, Neutrophils (%) (Auto) , Lymphocytes (%) (Auto) , Monocytes (%) (Auto) , Eosinophils (%) (Auto) , Basophils (%) (Auto) , Neutrophils % (Manual) [Pending], Lymphocytes % (Manual) [Pending], Platelet Estimate [Pending], Platelet Morphology [Pending], Sodium Level 145, Potassium Level 4.7, Chloride Level 103, Carbon Dioxide Level 27, Anion Gap 15, Blood Urea Nitrogen 12, Creatinine 0.9, Estimat Glomerular Filtration Rate , Glucose Level 86, Calcium Level 9.1, Total Bilirubin 0.6, Aspartate Amino Transf (AST/SGOT) 27, Alanine Aminotransferase (ALT/SGPT) 49H, Alkaline Phosphatase 90, Pro-B-Type Natriuretic Peptide 300, Total Protein 6.7, Albumin 4.3, Globulin 2.4, Albumin/Globulin Ratio 1.7, Amylase Level 40, Lipase 15 Height (Feet): 5 Height (Inches): 4.00 Weight (Pounds): 169 General Appearance: alert EENT: normal ENT inspection Neck: supple Cardiovascular: normal rate Respiratory/Chest: lungs clear Abdomen: normal bowel sounds, non tender, soft Extremities: non-tender LINDSAY SHORT Sep 28, 2016 09:50
[2016-09-28 10:20] LABS: BAND NEUTROPHILS % (MANUAL) 0 % (0-8); BASOPHILS % (MANUAL) 1 % (0-2); EOSINOPHILS % (MANUAL) 20 % (0-3); LYMPHOCYTES % (MANUAL) 25 % (20-45); NEUTROPHILS % (MANUAL) 47 % (45-75); PLATELET ESTIMATE DECREASED; PLATELET MORPHOLOGY NORMAL; TOTAL CELLS COUNTED 100
[2016-09-28 12:00] VITALS: BP 116/64
--- NOTE | 2016-09-28 12:03 | Pulmonology Progress Note ---
Assessment/Plan Assessment/Plan ASSESSMENT atypical chest pain - chest wall pain epigastric pain chemical pancreatitis Hx of aortic valve replacement HTN PLAN OF CARE tele chest wall pain reproducible on palpation- serial troponin negative , no ischemic changes, therefore ruled out for acute LA by cardio cardio follows continue ASA ECHO with EF 55% and RVSP of 33 stress test pending O2 HHN prn Pain management GI follows CT A/P pending ? cause of chemical pancreatitis trend lipase diet changed to liquid lipid panel with borderline LDL, no changes to account for high lipase antiemetic prn per GI will do GI procedures after cleared by cardio DVT, GI prophylaxis case discussed and evaluated by supervising physician Subjective Allergies: Coded Allergies: PENICILLINS (Verified Allergy, Intermediate, 09/26/16) Subjective denies chest pain reports epigastric pain no signs of respiratory distress, no reported SOB Objective Last 24 Hour Vital Signs Date Time Temp Pulse Resp B/P Pulse Ox O2 Delivery O2 Flow Rate FiO2 09/28/16 08:00 97.0 62 17 130/66 98 Room Air 09/28/16 08:00 62 09/28/16 07:50 67 18 Room Air 09/28/16 04:00 97.2 56 20 126/69 95 Room Air 2.0 09/28/16 03:41 55 09/28/16 00:00 97.7 58 20 114/71 95 Room Air 09/27/16 23:47 61 09/27/16 20:00 97.9 79 20 133/86 95 Room Air 09/27/16 19:52 61 09/27/16 19:52 61 09/27/16 16:00 70 09/27/16 16:00 98.0 67 18 114/71 98 Room Air 09/27/16 12:00 61 Objective General Appearance: no apparent distress, alert Lines, tubes and drains: peripheral HEENT: normocephalic, atraumatic, anicteric Neck: supple, normal inspection Respiratory/Chest: lungs clear, no respiratory distress, no accessory muscle use, chest wall pain reproducible on palpation left side Cardiovascular/Chest: normal peripheral pulses, normal rate, regular rhythm Abdomen: normal bowel sounds, non tender, soft Extremities: non-tender, no calf tenderness Skin Exam: warm/dry Neurologic: alert, oriented x 3, responsive Musculoskeletal: normal muscle bulk Laboratory Tests 09/28/16 06:11: White Blood Count 5.8, Red Blood Count 4.42, Hemoglobin 13.0, Hematocrit 40.2, Mean Corpuscular Volume 91, Mean Corpuscular Hemoglobin 29.3, Mean Corpuscular Hemoglobin Concent 32.2, Red Cell Distribution Width 13.3, Platelet Count 127L, Mean Platelet Volume 10.1, Neutrophils (%) (Auto) , Lymphocytes (%) (Auto) , Monocytes (%) (Auto) , Eosinophils (%) (Auto) , Basophils (%) (Auto) , Differential Total Cells Counted 100, Neutrophils % (Manual) 47, Lymphocytes % ( Manual) 25, Monocytes % (Manual) 7, Eosinophils % (Manual) 20H, Basophils % ( Manual) 1, Band Neutrophils 0, Platelet Estimate DecreasedL, Platelet Morphology Normal, Red Blood Cell Morphology Normal, Sodium Level 145, Potassium Level 4.7, Chloride Level 103, Carbon Dioxide Level 27, Anion Gap 15, Blood Urea Nitrogen 12, Creatinine 0.9, Estimat Glomerular Filtration Rate , Glucose Level 86, Calcium Level 9.1, Total Bilirubin 0.6, Aspartate Amino Transf (AST/SGOT) 27, Alanine Aminotransferase (ALT/SGPT) 49H, Alkaline Phosphatase 90, Troponin I < 0.30, Pro-B-Type Natriuretic Peptide 300, Total Protein 6.7, Albumin 4.3, Globulin 2.4, Albumin/Globulin Ratio 1.7, Amylase Level 40, Lipase 15 Current Medications Medications (Trade) Dose Ordered Sig/Jaxon Route PRN Reason Start Time Stop Time Status Last Admin Dose Admin Acetaminophen (Tylenol) 650 mg Q4H PRN ORAL FEVER 09/26/16 20:15 10/26/16 20:14 09/27/16 19:51 Albuterol/ Ipratropium (DuoNeb 0.5-3(2.5)mg/3ml) 3 ml EVERY 4 HOURS PRN HHN Shortness of Breath 09/26/16 20:15 10/01/16 20:14 Aspirin (ASA) 162 mg DAILY ORAL 09/27/16 09:00 10/27/16 08:59 09/28/16 09:05 Diltiazem HCl (Cardizem) 10 mg EVERY HOUR PRN IV heart rate more than 120, 09/26/16 20:15 10/26/16 20:14 Enalaprilat (Vasotec) 2.5 mg EVERY 6 HOURS PRN IV sbp more than 160 09/26/16 20:15 10/26/16 20:14 Heparin Sodium (Porcine) (Heparin 5000 units/ml) 5,000 units EVERY 12 HOURS SUBQ 09/26/16 21:00 10/26/16 20:59 09/28/16 09:09 Ketorolac Tromethamine (Toradol 30mg) 30 mg Q6HR PRN IV moderate pain ( 4-6) 09/26/16 20:15 10/01/16 20:14 09/28/16 09:06 Morphine Sulfate (Morphine Sulfate) 2 mg EVERY 4 HOURS PRN IVP severe Pain (Pain Scale 7-10) 09/26/16 20:15 10/03/16 20:14 Nitroglycerin (Ntg) 0.4 mg q 5 mins PRN SL Prn Chest Pain 09/26/16 20:15 10/26/16 20:14 Ondansetron HCl (Zofran) 4 mg Q6H PRN IVP Nausea & Vomiting 09/26/16 20:15 10/26/16 20:14 Pantoprazole (Protonix) 40 mg DAILY ORAL 09/27/16 09:00 10/27/16 08:59 09/28/16 09:04 Polyethylene Glycol (Miralax) 17 gm DAILYPRN PRN ORAL Constipation 09/26/16 20:15 10/26/16 20:14 Temazepam (Restoril) 15 mg HSPRN PRN ORAL Insomnia 09/26/16 20:15 10/03/16 20:14 09/27/16 21:02 Angela Ríos NP (Vanchtein) Sep 28, 2016 12:02
--- NOTE | 2016-09-28 13:27 | Internal Med Progress Note ---
Subjective Date of Service: Sep 28, 2016 Physician Name Tesha Hatfield Attending Physician Rancho Espinal MD Current Medications Medications (Trade) Dose Ordered Sig/Jaxon Route PRN Reason Start Time Stop Time Status Last Admin Dose Admin Acetaminophen (Tylenol) 650 mg Q4H PRN ORAL FEVER 09/26/16 20:15 10/26/16 20:14 09/27/16 19:51 Albuterol/ Ipratropium (DuoNeb 0.5-3(2.5)mg/3ml) 3 ml EVERY 4 HOURS PRN HHN Shortness of Breath 09/26/16 20:15 10/01/16 20:14 Aspirin (ASA) 162 mg DAILY ORAL 09/27/16 09:00 10/27/16 08:59 09/28/16 09:05 Diltiazem HCl (Cardizem) 10 mg EVERY HOUR PRN IV heart rate more than 120, 09/26/16 20:15 10/26/16 20:14 Enalaprilat (Vasotec) 2.5 mg EVERY 6 HOURS PRN IV sbp more than 160 09/26/16 20:15 10/26/16 20:14 Heparin Sodium (Porcine) (Heparin 5000 units/ml) 5,000 units EVERY 12 HOURS SUBQ 09/26/16 21:00 10/26/16 20:59 09/28/16 09:09 Ketorolac Tromethamine (Toradol 30mg) 30 mg Q6HR PRN IV moderate pain ( 4-6) 09/26/16 20:15 10/01/16 20:14 09/28/16 09:06 Morphine Sulfate (Morphine Sulfate) 2 mg EVERY 4 HOURS PRN IVP severe Pain (Pain Scale 7-10) 09/26/16 20:15 10/03/16 20:14 Nitroglycerin (Ntg) 0.4 mg q 5 mins PRN SL Prn Chest Pain 09/26/16 20:15 10/26/16 20:14 Ondansetron HCl (Zofran) 4 mg Q6H PRN IVP Nausea & Vomiting 09/26/16 20:15 10/26/16 20:14 Pantoprazole (Protonix) 40 mg DAILY ORAL 09/27/16 09:00 10/27/16 08:59 09/28/16 09:04 Polyethylene Glycol (Miralax) 17 gm DAILYPRN PRN ORAL Constipation 09/26/16 20:15 10/26/16 20:14 Temazepam (Restoril) 15 mg HSPRN PRN ORAL Insomnia 09/26/16 20:15 10/03/16 20:14 09/27/16 21:02 Allergies: Coded Allergies: PENICILLINS (Verified Allergy, Intermediate, 09/26/16) ROS Limited/Unobtainable: No Constitutional: Reports: no symptoms HEENT: Reports: no symptoms Cardiovascular: Reports: chest pain Respiratory: Reports: no symptoms Gastrointestinal/Abdominal: Reports: abdominal pain Genitourinary: Reports: no symptoms Neurologic/Psychiatric: Reports: no symptoms Subjective 76 YO F admitted for chest pain and right upper quadrant abdominal pain. Now pancreatitis. Cover for Int Quinn-Dr Espinal. Objective Last Vital Signs Date Time Temp Pulse Resp B/P Pulse Ox O2 Delivery O2 Flow Rate FiO2 09/28/16 12:00 97.9 55 18 116/64 96 Room Air 09/28/16 04:00 2.0 General Appearance: WD/WN, no apparent distress, alert EENT: PERRL/EOMI, normal ENT inspection, TMs normal Neck: non-tender, normal alignment, supple, normal inspection Cardiovascular: normal peripheral pulses, no gallop/murmur, no JVD, bradycardia Respiratory/Chest: chest wall non-tender, lungs clear, normal breath sounds, no respiratory distress, no accessory muscle use Abdomen: normal bowel sounds, no organomegaly, no mass, decreased bowel sounds , tender Extremities: normal range of motion Neurologic: [employer] and skin II-XII grossly normal, no motor/sensory deficits Skin: normal pigmentation, warm/dry Laboratory Tests Test 09/28/16 06:11 White Blood Count 5.8 K/UL (4.8-10.8) Red Blood Count 4.42 M/UL (4.20-5.40) Hemoglobin 13.0 G/DL (12.0-16.0) Hematocrit 40.2 % (37.0-47.0) Mean Corpuscular Volume 91 FL (80-99) Mean Corpuscular Hemoglobin 29.3 PG (27.0-31.0) Mean Corpuscular Hemoglobin Concent 32.2 G/DL (32.0-36.0) Red Cell Distribution Width 13.3 % (11.6-14.8) Platelet Count 127 K/UL (150-450) L Mean Platelet Volume 10.1 FL (6.5-10.1) Neutrophils (%) (Auto) % (45.0-75.0) Lymphocytes (%) (Auto) % (20.0-45.0) Monocytes (%) (Auto) % (1.0-10.0) Eosinophils (%) (Auto) % (0.0-3.0) Basophils (%) (Auto) % (0.0-2.0) Differential Total Cells Counted 100 Neutrophils % (Manual) 47 % (45-75) Lymphocytes % (Manual) 25 % (20-45) Monocytes % (Manual) 7 % (1-10) Eosinophils % (Manual) 20 % (0-3) H Basophils % (Manual) 1 % (0-2) Band Neutrophils 0 % (0-8) Platelet Estimate Decreased L Platelet Morphology Normal Red Blood Cell Morphology Normal Sodium Level 145 mEQ/L (135-145) Potassium Level 4.7 mEQ/L (3.4-4.9) Chloride Level 103 mEQ/L (98-107) Carbon Dioxide Level 27 mEQ/L (20-30) Anion Gap 15 (5-15) Blood Urea Nitrogen 12 mg/dL (7-23) Creatinine 0.9 mg/dL (0.5-0.9) Estimat Glomerular Filtration Rate mL/min (>60) Glucose Level 86 mg/dL (74-106) Calcium Level 9.1 mg/dL (8.6-10.2) Total Bilirubin 0.6 mg/dL (0.0-1.2) Aspartate Amino Transf (AST/SGOT) 27 U/L (5-40) Alanine Aminotransferase (ALT/SGPT) 49 U/L (3-33) H Alkaline Phosphatase 90 U/L (35-104) Troponin I < 0.30 ng/mL (<=0.30) Pro-B-Type Natriuretic Peptide 300 pg/mL (0-450) Total Protein 6.7 g/dL (6.6-8.7) Albumin 4.3 g/dL (3.5-5.2) Globulin 2.4 g/dL Albumin/Globulin Ratio 1.7 (1.0-2.7) Amylase Level 40 U/L (10-110) Lipase 15 U/L (< 60) Assessment/Plan Problem List: (1) RUQ abdominal pain (2) Bradycardia Assessment & Plan: See cardiology note. (3) GERD (gastroesophageal reflux disease) (4) Chest pain Assessment & Plan: See cardiology note. Await cardiac stress test 09/29/16. (5) Aortic valve replaced (6) HTN (hypertension) Assessment & Plan: Cont vasotec and cardizem. (7) Pancreatitis, acute Assessment & Plan: See GI consult-Dr Acharya. CT abd/pelvis=diverticulosis, otherwise no acute dis. Status: not improved TESHA HATFIELD Sep 28, 2016 13:27
[2016-09-28 16:35] VITALS: BP 126/76
[2016-09-28 20:25] VITALS: BP 107/66
[2016-09-29] VITALS: BP 112/74
[2016-09-29 08:00] VITALS: BP 116/75
[2016-09-29 08:16] LABS: BASOPHILS % (AUTO) 1.2 % (0.0-2.0); EOSINOPHILS % (AUTO) 19.5 % (0.0-3.0); LYMPHOCYTES % (AUTO) 17.6 % (20.0-45.0); MEAN CORPUSCULAR HEMOGLOBIN 28.9 PG (27.0-31.0); MEAN CORPUSCULAR HGB CONC 31.9 G/DL (32.0-36.0); MEAN CORPUSCULAR VOLUME 91 FL (80-99); MEAN PLATELET VOLUME 9.8 FL (6.5-10.1); MONOCYTES % (AUTO) 7.9 % (1.0-10.0); NEUTROPHILS % (AUTO) 53.7 % (45.0-75.0); PLATELET COUNT 154 K/UL (150-450); RED BLOOD COUNT 4.76 M/UL (4.20-5.40); RED CELL DISTRIBUTION WIDTH 13.5 % (11.6-14.8); WHITE BLOOD COUNT 7.4 K/UL (4.8-10.8)
[2016-09-29] MEDS: Aspirin Baby 81mg ORAL SCH (08:22)
[2016-09-29] MEDS: Heparin 5000 units/ml inj SUBQ SCH (08:28)
[2016-09-29 08:31] LABS: TROPONIN I < 0.30 ng/mL (<=0.30)
[2016-09-29 08:36] LABS: ANION GAP 15 (5-15); CALCIUM 9.4 mg/dL (8.6-10.2); CARBON DIOXIDE 25 mEQ/L (20-30); CHLORIDE 102 mEQ/L (98-107); CREATININE 0.9 mg/dL (0.5-0.9); HEMOLYSIS 29; SODIUM 142 mEQ/L (135-145)
--- NOTE | 2016-09-29 08:42 | Diagnostic Imaging Report ---
Indications: Chest pain shortness of breath Technique: Continuous helical CT imaging of the thorax was performed with automatic exposure control, following bolus intravenous administration of nonionic iodine contrast, on a Siemens sensation [address] scanner. Axial images reconstructed at 3 mm slice thickness and 1.5 mm interval. Coronal and sagittal images were reconstructed at 3 mm slice thickness. Coronal and sagittal two-dimensional maximum intensity projection and three-dimensional volume-rendered images were reconstructed on a stand alone workstation. CTDI volume(s): 13, 38, 28 mGy Total DLP: 761 mGy-cm Findings: Comparison: None The main pulmonary artery, right and left pulmonary arteries, and pulmonary artery branches to the level of second order branching are patent and well-opacified. No intraluminal filling defects are demonstrated. More peripheral branches are inadequately opacified, limiting evaluation. Thoracic aorta and great vessels are patent and well-opacified with moderate calcified plaquing. The ascending aorta demonstrates fusiform aneurysmal dilation measuring up to 46 mm in diameter. No evidence of dissection or leak. Aortic valve prosthesis in place. Heart is mildly enlarged. No pericardial abnormality. Calcified nodules in the subcarinal region and mediastinum. No mediastinal or hilar enlarged lymph nodes, other abnormal mass or fluid collection. Pleural-based linear densities in both lung bases. Lungs otherwise relatively clear. No pleural abnormality. Chest wall soft tissues nonfocal. Sternal wires. Small hiatal hernia. Gallbladder absent. Surgical clips in gallbladder fossa. Disc space narrowing with marginal osteophyte formation, vacuum phenomenon in thoracic spine. IMPRESSION: No evidence of large central pulmonary emboli. Examination nondiagnostic for small peripheral pulmonary emboli. 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 No evidence of associated dissection or leak. Moderate arteriosclerosis. 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 Andino's preliminary report.
--- NOTE | 2016-09-29 09:53 | GI Progress Note ---
Assessment/Plan Problems: (1) GERD (gastroesophageal reflux disease) ICD Codes: K21.9 - Gastro-esophageal reflux disease without esophagitis SNOMED: 474266673 (2) Pancreatitis ICD Codes: K85.90 - Acute pancreatitis without necrosis or infection, unspecified SNOMED: 38228612 (3) Pancreatitis, acute ICD Codes: K85.90 - Acute pancreatitis without necrosis or infection, unspecified SNOMED: 652507310 (4) RUQ abdominal pain ICD Codes: R10.11 - Right upper quadrant pain SNOMED: 489345874 Status: unchanged Status Narrative Discussed with Dr. Acharya. Assessment/Plan troponin negative stress test today CT reviewed >> s/p malathi outpatient GI procedures fu labs Subjective Gastrointestinal/Abdominal: Reports: no symptoms Objective Last 24 Hour Vital Signs Date Time Temp Pulse Resp B/P Pulse Ox O2 Delivery O2 Flow Rate FiO2 09/29/16 08:00 57 09/29/16 08:00 97.2 62 20 116/75 96 Room Air 09/29/16 04:00 55 09/29/16 00:00 59 09/29/16 00:00 97.2 58 19 112/74 94 Room Air 09/28/16 20:25 97.3 56 19 107/66 94 Room Air 09/28/16 20:00 71 09/28/16 19:31 54 18 Room Air 09/28/16 16:35 97.7 58 19 126/76 95 Room Air 09/28/16 16:00 61 09/28/16 12:00 97.9 55 18 116/64 96 Room Air 09/28/16 12:00 60 Intake and Output 09/28/16 09/29/16 19:00 07:00 Intake Total 680 ml 240 ml Balance 680 ml 240 ml Intake Oral 680 ml 240 ml # Voids 3 3 Laboratory Tests Test 09/29/16 07:20 White Blood Count 7.4 K/UL (4.8-10.8) Red Blood Count 4.76 M/UL (4.20-5.40) Hemoglobin 13.8 G/DL (12.0-16.0) Hematocrit 43.1 % (37.0-47.0) Mean Corpuscular Volume 91 FL (80-99) Mean Corpuscular Hemoglobin 28.9 PG (27.0-31.0) Mean Corpuscular Hemoglobin Concent 31.9 G/DL (32.0-36.0) L Red Cell Distribution Width 13.5 % (11.6-14.8) Platelet Count 154 K/UL (150-450) Mean Platelet Volume 9.8 FL (6.5-10.1) Neutrophils (%) (Auto) 53.7 % (45.0-75.0) Lymphocytes (%) (Auto) 17.6 % (20.0-45.0) L Monocytes (%) (Auto) 7.9 % (1.0-10.0) Eosinophils (%) (Auto) 19.5 % (0.0-3.0) H Basophils (%) (Auto) 1.2 % (0.0-2.0) Sodium Level 142 mEQ/L (135-145) Potassium Level 5.0 mEQ/L (3.4-4.9) H Chloride Level 102 mEQ/L (98-107) Carbon Dioxide Level 25 mEQ/L (20-30) Anion Gap 15 (5-15) Blood Urea Nitrogen 16 mg/dL (7-23) Creatinine 0.9 mg/dL (0.5-0.9) Estimat Glomerular Filtration Rate mL/min (>60) Glucose Level 95 mg/dL (74-106) Calcium Level 9.4 mg/dL (8.6-10.2) Troponin I < 0.30 ng/mL (<=0.30) Height (Feet): 5 Height (Inches): 4.00 Weight (Pounds): 169 General Appearance: no apparent distress, alert Cardiovascular: normal rate Respiratory/Chest: normal breath sounds Abdominal Exam: normal bowel sounds, non tender, soft Coretta Rabago N.PAxel Sep 29, 2016 09:53
--- NOTE | 2016-09-29 11:07 | Internal Med Progress Note ---
Subjective Date of Service: Sep 29, 2016 Physician Name Jere Hatfield Attending Physician Rancho Espinal MD Current Medications Medications (Trade) Dose Ordered Sig/Jaxon Route PRN Reason Start Time Stop Time Status Last Admin Dose Admin Acetaminophen (Tylenol) 650 mg Q4H PRN ORAL FEVER 09/26/16 20:15 10/26/16 20:14 09/27/16 19:51 Albuterol/ Ipratropium (DuoNeb 0.5-3(2.5)mg/3ml) 3 ml EVERY 4 HOURS PRN HHN Shortness of Breath 09/26/16 20:15 10/01/16 20:14 Aspirin (ASA) 162 mg DAILY ORAL 09/27/16 09:00 10/27/16 08:59 09/29/16 08:22 Diltiazem HCl (Cardizem) 10 mg EVERY HOUR PRN IV heart rate more than 120, 09/26/16 20:15 10/26/16 20:14 Enalaprilat (Vasotec) 2.5 mg EVERY 6 HOURS PRN IV sbp more than 160 09/26/16 20:15 10/26/16 20:14 Heparin Sodium (Porcine) (Heparin 5000 units/ml) 5,000 units EVERY 12 HOURS SUBQ 09/26/16 21:00 10/26/16 20:59 09/29/16 08:28 Ketorolac Tromethamine (Toradol 30mg) 30 mg Q6HR PRN IV moderate pain ( 4-6) 09/26/16 20:15 10/01/16 20:14 09/28/16 09:06 Morphine Sulfate (Morphine Sulfate) 2 mg EVERY 4 HOURS PRN IVP severe Pain (Pain Scale 7-10) 09/26/16 20:15 10/03/16 20:14 Nitroglycerin (Ntg) 0.4 mg q 5 mins PRN SL Prn Chest Pain 09/26/16 20:15 10/26/16 20:14 Ondansetron HCl (Zofran) 4 mg Q6H PRN IVP Nausea & Vomiting 09/26/16 20:15 10/26/16 20:14 Pantoprazole (Protonix) 40 mg DAILY ORAL 09/27/16 09:00 10/27/16 08:59 09/29/16 08:22 Polyethylene Glycol (Miralax) 17 gm DAILYPRN PRN ORAL Constipation 09/26/16 20:15 10/26/16 20:14 Temazepam (Restoril) 15 mg HSPRN PRN ORAL Insomnia 09/26/16 20:15 10/03/16 20:14 09/28/16 20:52 Allergies: Coded Allergies: PENICILLINS (Verified Allergy, Intermediate, 09/26/16) ROS Limited/Unobtainable: No Constitutional: Reports: no symptoms HEENT: Reports: no symptoms Cardiovascular: Reports: no symptoms Respiratory: Reports: no symptoms Gastrointestinal/Abdominal: Reports: no symptoms Genitourinary: Reports: no symptoms Neurologic/Psychiatric: Reports: no symptoms Subjective 76 YO F admitted for chest pain and right upper quadrant abdominal pain. Now pancreatitis. Await dobutamine stress test today. Cover for Int Med-Dr Espinal. Objective Last Vital Signs Date Time Temp Pulse Resp B/P Pulse Ox O2 Delivery O2 Flow Rate FiO2 09/29/16 08:00 57 09/29/16 08:00 97.2 20 116/75 96 Room Air 09/28/16 04:00 2.0 Laboratory Tests Test 09/29/16 07:20 White Blood Count 7.4 K/UL (4.8-10.8) Red Blood Count 4.76 M/UL (4.20-5.40) Hemoglobin 13.8 G/DL (12.0-16.0) Hematocrit 43.1 % (37.0-47.0) Mean Corpuscular Volume 91 FL (80-99) Mean Corpuscular Hemoglobin 28.9 PG (27.0-31.0) Mean Corpuscular Hemoglobin Concent 31.9 G/DL (32.0-36.0) L Red Cell Distribution Width 13.5 % (11.6-14.8) Platelet Count 154 K/UL (150-450) Mean Platelet Volume 9.8 FL (6.5-10.1) Neutrophils (%) (Auto) 53.7 % (45.0-75.0) Lymphocytes (%) (Auto) 17.6 % (20.0-45.0) L Monocytes (%) (Auto) 7.9 % (1.0-10.0) Eosinophils (%) (Auto) 19.5 % (0.0-3.0) H Basophils (%) (Auto) 1.2 % (0.0-2.0) Sodium Level 142 mEQ/L (135-145) Potassium Level 5.0 mEQ/L (3.4-4.9) H Chloride Level 102 mEQ/L (98-107) Carbon Dioxide Level 25 mEQ/L (20-30) Anion Gap 15 (5-15) Blood Urea Nitrogen 16 mg/dL (7-23) Creatinine 0.9 mg/dL (0.5-0.9) Estimat Glomerular Filtration Rate mL/min (>60) Glucose Level 95 mg/dL (74-106) Calcium Level 9.4 mg/dL (8.6-10.2) Troponin I < 0.30 ng/mL (<=0.30) Intake and Output 09/28/16 09/29/16 19:00 07:00 Intake Total 680 ml 240 ml Balance 680 ml 240 ml Intake Oral 680 ml 240 ml # Voids 3 3 Objective General Appearance: WD/WN, no apparent distress, alert EENT: PERRL/EOMI, normal ENT inspection, TMs normal Neck: non-tender, normal alignment, supple, normal inspection Cardiovascular: normal peripheral pulses, no gallop/murmur, no JVD, bradycardia Respiratory/Chest: chest wall non-tender, lungs clear, normal breath sounds, no respiratory distress, no accessory muscle use Abdomen: normal bowel sounds, no organomegaly, no mass, decreased bowel sounds , tender Extremities: normal range of motion 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 (2) Bradycardia Assessment & Plan: See cardiology note. (3) GERD (gastroesophageal reflux disease) (4) Chest pain Assessment & Plan: See cardiology note. Await cardiac stress test 09/29/16. (5) Aortic valve replaced (6) HTN (hypertension) Assessment & Plan: Cont vasotec and cardizem. (7) Pancreatitis, acute Assessment & Plan: See GI consult-Dr Acharya. CT abd/pelvis=diverticulosis, otherwise no acute dis. Assessment/Plan Discharge home today if cardiac stress test normal. JERE HATFIELD Sep 29, 2016 11:07
[2016-09-29 12:00] VITALS: BP 106/69
--- NOTE | 2016-09-29 12:20 | Pulmonology Progress Note ---
Assessment/Plan Problems: (1) Chest pain (2) HTN (hypertension) (3) History of mitral valve replacement with porcine valve Assessment/Plan stress study in process no more chest pain symptomatic treatment Subjective ROS Limited/Unobtainable: No Constitutional: Reports: no symptoms Allergies: Coded Allergies: PENICILLINS (Verified Allergy, Intermediate, 09/26/16) Objective Last 24 Hour Vital Signs Date Time Temp Pulse Resp B/P Pulse Ox O2 Delivery O2 Flow Rate FiO2 09/29/16 08:00 57 09/29/16 08:00 97.2 62 20 116/75 96 Room Air 09/29/16 07:40 62 18 Room Air 09/29/16 04:00 55 09/29/16 00:00 59 09/29/16 00:00 97.2 58 19 112/74 94 Room Air 09/28/16 20:25 97.3 56 19 107/66 94 Room Air 09/28/16 20:00 71 09/28/16 19:31 54 18 Room Air 09/28/16 16:35 97.7 58 19 126/76 95 Room Air 09/28/16 16:00 61 Intake and Output 09/28/16 09/29/16 19:00 07:00 Intake Total 680 ml 240 ml Balance 680 ml 240 ml Intake Oral 680 ml 240 ml # Voids 3 3 General Appearance: WD/WN HEENT: normocephalic Respiratory/Chest: chest wall non-tender, lungs clear Breasts: no masses Cardiovascular: normal peripheral pulses, normal rate Abdomen: normal bowel sounds, soft, non tender Genitourinary: normal external genitalia Extremities: no cyanosis 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, no motor/sensory deficits Musculoskeletal: normal muscle bulk Laboratory Tests 09/29/16 07:20: White Blood Count 7.4, Red Blood Count 4.76, Hemoglobin 13.8, Hematocrit 43.1, Mean Corpuscular Volume 91, Mean Corpuscular Hemoglobin 28.9, Mean Corpuscular Hemoglobin Concent 31.9L, Red Cell Distribution Width 13.5, Platelet Count 154, Mean Platelet Volume 9.8, Neutrophils (%) (Auto) 53.7, Lymphocytes (%) (Auto) 17.6L, Monocytes (%) (Auto) 7.9, Eosinophils (%) (Auto) 19.5H, Basophils (%) ( Auto) 1.2, Sodium Level 142, Potassium Level 5.0H, Chloride Level 102, Carbon Dioxide Level 25, Anion Gap 15, Blood Urea Nitrogen 16, Creatinine 0.9, Estimat Glomerular Filtration Rate , Glucose Level 95, Calcium Level 9.4, Troponin I < 0.30 Current Medications Medications (Trade) Dose Ordered Sig/Jaxon Route PRN Reason Start Time Stop Time Status Last Admin Dose Admin Acetaminophen (Tylenol) 650 mg Q4H PRN ORAL FEVER 09/26/16 20:15 10/26/16 20:14 09/27/16 19:51 Albuterol/ Ipratropium (DuoNeb 0.5-3(2.5)mg/3ml) 3 ml EVERY 4 HOURS PRN HHN Shortness of Breath 09/26/16 20:15 10/01/16 20:14 Aspirin (ASA) 162 mg DAILY ORAL 09/27/16 09:00 10/27/16 08:59 09/29/16 08:22 Diltiazem HCl (Cardizem) 10 mg EVERY HOUR PRN IV heart rate more than 120, 09/26/16 20:15 10/26/16 20:14 Enalaprilat (Vasotec) 2.5 mg EVERY 6 HOURS PRN IV sbp more than 160 09/26/16 20:15 10/26/16 20:14 Heparin Sodium (Porcine) (Heparin 5000 units/ml) 5,000 units EVERY 12 HOURS SUBQ 09/26/16 21:00 10/26/16 20:59 09/29/16 08:28 Ketorolac Tromethamine (Toradol 30mg) 30 mg Q6HR PRN IV moderate pain ( 4-6) 09/26/16 20:15 10/01/16 20:14 09/28/16 09:06 Morphine Sulfate (Morphine Sulfate) 2 mg EVERY 4 HOURS PRN IVP severe Pain (Pain Scale 7-10) 09/26/16 20:15 10/03/16 20:14 Nitroglycerin (Ntg) 0.4 mg q 5 mins PRN SL Prn Chest Pain 09/26/16 20:15 10/26/16 20:14 Ondansetron HCl (Zofran) 4 mg Q6H PRN IVP Nausea & Vomiting 09/26/16 20:15 10/26/16 20:14 Pantoprazole (Protonix) 40 mg DAILY ORAL 09/27/16 09:00 10/27/16 08:59 09/29/16 08:22 Polyethylene Glycol (Miralax) 17 gm DAILYPRN PRN ORAL Constipation 09/26/16 20:15 10/26/16 20:14 Temazepam (Restoril) 15 mg HSPRN PRN ORAL Insomnia 09/26/16 20:15 10/03/16 20:14 09/28/16 20:52 TEOFILO MARES Sep 29, 2016 12:20
--- NOTE | 2016-09-29 12:20 | Cardiac Electrophysiology PN ---
Assessment/Plan Assessment/Plan 1. Atypical chest pain. The patient was ruled out for myocardial infarction by serial cardiac enzymes. EKG showed nonspecific ST-T wave abnormalities. Nuclear stress test done today results are pending. 2. Bradycardia on EKG showed heart rate of 45 with first-degree AV block. Resolved. Continue to monitor the patient on telemetry off any AV pooja blocking agent. 3. History of Porcine aortic valve replacement. Echo EF 55% DW RN and Dr Gale. Subjective Subjective Just completed Dobutamine stress test by Dr Gale. No chest pain or SOB. Objective Last 24 Hour Vital Signs Date Time Temp Pulse Resp B/P Pulse Ox O2 Delivery O2 Flow Rate FiO2 09/29/16 08:00 57 09/29/16 08:00 97.2 62 20 116/75 96 Room Air 09/29/16 07:40 62 18 Room Air 09/29/16 04:00 55 09/29/16 00:00 59 09/29/16 00:00 97.2 58 19 112/74 94 Room Air 09/28/16 20:25 97.3 56 19 107/66 94 Room Air 09/28/16 20:00 71 09/28/16 19:31 54 18 Room Air 09/28/16 16:35 97.7 58 19 126/76 95 Room Air 09/28/16 16:00 61 Intake and Output 09/28/16 09/29/16 19:00 07:00 Intake Total 680 ml 240 ml Balance 680 ml 240 ml Intake Oral 680 ml 240 ml # Voids 3 3 Laboratory Tests Test 09/29/16 07:20 White Blood Count 7.4 K/UL (4.8-10.8) Red Blood Count 4.76 M/UL (4.20-5.40) Hemoglobin 13.8 G/DL (12.0-16.0) Hematocrit 43.1 % (37.0-47.0) Mean Corpuscular Volume 91 FL (80-99) Mean Corpuscular Hemoglobin 28.9 PG (27.0-31.0) Mean Corpuscular Hemoglobin Concent 31.9 G/DL (32.0-36.0) L Red Cell Distribution Width 13.5 % (11.6-14.8) Platelet Count 154 K/UL (150-450) Mean Platelet Volume 9.8 FL (6.5-10.1) Neutrophils (%) (Auto) 53.7 % (45.0-75.0) Lymphocytes (%) (Auto) 17.6 % (20.0-45.0) L Monocytes (%) (Auto) 7.9 % (1.0-10.0) Eosinophils (%) (Auto) 19.5 % (0.0-3.0) H Basophils (%) (Auto) 1.2 % (0.0-2.0) Sodium Level 142 mEQ/L (135-145) Potassium Level 5.0 mEQ/L (3.4-4.9) H Chloride Level 102 mEQ/L (98-107) Carbon Dioxide Level 25 mEQ/L (20-30) Anion Gap 15 (5-15) Blood Urea Nitrogen 16 mg/dL (7-23) Creatinine 0.9 mg/dL (0.5-0.9) Estimat Glomerular Filtration Rate mL/min (>60) Glucose Level 95 mg/dL (74-106) Calcium Level 9.4 mg/dL (8.6-10.2) Troponin I < 0.30 ng/mL (<=0.30) Objective HEAD AND NECK: Showed no JVD or carotid bruits. LUNGS: Decreased breath sounds. CARDIOVASCULAR: Shows regular S1 and S2 with no gallop. Bradycardic. ABDOMEN: Soft. EXTREMITIES: Have no pitting edema. WESTON PETTIT Sep 29, 2016 12:20
--- NOTE | 2016-09-29 15:05 | Diagnostic Imaging Report ---
Indications: Chest pain Technique: Single day single isotope protocol utilized. Initially, resting images obtained using IV administration 10.1 millicuries 99M technetium Myoview. Subsequently, patient underwent Dobutamine stress testing. See cardiology report for details. During dobutamine infusion, IV administration 33.9 mCi 99 M technetium Myoview. SPECT and planar images obtained. SPECT images gated to 8 phases of the cardiac cycle were also obtained, and reformatted into cine images for evaluation of ejection fraction. Comparison: None Findings: Per cardiology report, patient experienced palpitations. Per cardiology report, resting EKG demonstrates sinus bradycardia. Presence or absence of EKG changes during stress is not recorded on the cardiology report. Imaging demonstrates no definite fixed nor reversible post stress perfusion defects.. Calculated post stress ejection fraction 75%. No abnormal wall motion. Patient achieved at peak heart rate 127 beats per minute, in excess of the target heart rate of 123 beats for minute Impression: Nonischemic clinical response to pharmacologic stress, per cardiology report Nonischemic electrocardiographic response to pharmacologic stress, per cardiology report No imaging findings to suggest ischemia, at level of stress achieved. Calculated post stress ejection fraction 75%
[2016-09-29 16:00] VITALS: BP 128/74
--- NOTE | 2016-09-29 17:54 | Diagnostic Imaging Report ---
Indication: PAIN Technique: Multiple views of the skull Comparison: None Findings: No fracture, osteolytic process or blastic lesion demonstrated. The included orbits and sinuses are unremarkable. No radiopaque foreign body. Patient is edentulous Impression: Negative
[2016-09-29] MEDS ORDERED: ASPIR 8181 MG ORAL (20:19)
[2016-09-29] MEDS ORDERED: DOBUTamine 250mg/250ml Premix IV ONE (20:39)
--- NOTE | 2016-09-30 00:12 | Cardiology Report ---
APPROVED REPORT EKG Measurement Heart [id number] NM [id number] Sinus [address] Nonspecific ST and T wave abnormality Abnormal ECG
--- NOTE | 2016-09-30 11:20 | Cardiology Report ---
APPROVED REPORT EXAM: Two-dimensional and M-mode echocardiogram with Doppler and color Doppler. INDICATION Left Ventricular Function M-Mode DIMENSIONS IVSd1.3 (0.7-1.1cm)Left Atrium (MM)3.2 (1.6-4.0cm) LVDd3.3 (3.5-5.6cm)Aortic Root2.2 (2.0-3.7cm) PWd1.1 (0.7-1.1cm)Aortic Cusp Exc.1.7 (1.5-2.0cm) LVDs1.8 (2.5-4.0cm) PWs1.8 cm Technically difficult study due to poor acoustic windows. Study quality precludes accurate assessment of regional wall motion. Normal left ventricular chamber size, systolic function and wall motion. Left ventricular ejection fraction estimated to be 55 %. Mild left ventricular hypertrophy. Anterior Echo-free space, may be due to pericardial fat or effusion. All other cardiac chamber sizes are within normal limits. Mild focal aortic valve sclerosis with adequate cusp excursion. Mildly thickened mitral valve leaflets with normal excursion. Mild mitral annulus and aortic root calcification. Pulmonic valve not well visualized. Normal tricuspid valve structure. IVC at normal size with physiologic collapse. A color flow and spectral Doppler study was performed and revealed: No aortic regurgitation. Peak aortic valve gradient of 17 mmHg and a mean of 9 mmHg. Aortic valve area 1.3 cm2 calculated by continuity equation. Mild mitral regurgitation. Mitral diastolic velocities suggest reduced left ventricular relaxation (Grade I). Mild tricuspid regurgitation. Tricuspid systolic velocities suggests peak right ventricular systolic pressure of 33 mmHg. Trace pulmonic regurgitation present.
--- NOTE | 2016-09-30 15:59 | Discharge Summary ---
Discharge Summary Hospital Course Date of Admission Sep 26, 2016 at 18:20 Date of Discharge Sep 29, 2016 at 20:40 Admitting Diagnosis CHEST PAIN, ACS HPI Mag Husain is a 76 year old female who was admitted on Sep 26, 2016 at 18:20 for Chest Pain, Acute Coronary Syndrome Hospital Course dc summary #[id number] Discharge Medications Continued Medications: Aspirin* (Aspir 81*) 81 Mg Tablet.dr 81 MG ORAL DAILY, TAB Nitroglycerin (Nitroglycerin) 0.4 Mg Tab.subl 0.4 MG SL, TAB Omeprazole (Omeprazole) 20 Mg Capsule.dr 20 MG ORAL DAILY, CAP Discharge Discharge Disposition Patient was discharged to Home () Discharge Diagnoses: [place] (Camille)Angela [employer] Sep 30, 2016 15:58
--- NOTE | 2016-10-01 07:08 | Discharge Summary 2 SIG ---
DATE OF ADMISSION: 09/26/2016 DATE OF DISCHARGE: 09/29/2016 REASON FOR ADMISSION: 76-year-old female presented to emergency room complaining of increased epigastric pain and chest pain. The patient had a prior history of aortic valve replacement. Onset of symptoms was few hours prior to arrival. The patient had no radiation of pain. She reported nausea, but no vomiting. She also reported sharp pain in epigastric region. The patient was given aspirin and nitroglycerin by paramedics without any change in her condition. The patient subsequently was given morphine IV with minimal improvement. The patient had no fever and no chills. The patient with a prior history of cholecystectomy. Workup in the emergency room revealed negative troponin. Blood pressure was stable. Pulse oximetry was stable on the room air. No leukocytosis. Stable electrolytes. Renal parameters within normal limits. Elevated AST of 59.Pro BNP 213. Lipase elevated -1161. Troponin was negative. Chest x-ray revealed no acute cardiopulmonary disease. EKG showed normal sinus rhythm. Chest pain was reproducible on palpation. CTA of the chest revealed no evidence of large central pulmonary emboli, demonstrated 4.6 cm fusiform aneurysm of the ascending aorta with aortic valve prosthesis in place. No evidence of associated dissection or leak. The patient admitted for further management. ADMITTING DIAGNOSES: Includes: 1. Chest wall pain. 2. Epigastric pain. 3. Chemical pancreatitis. 4. History of aortic valve replacement. 5. Hypertension. HOSPITAL COURSE: The patient admitted to telemetry floor. Chest wall pain was reproducible on palpation. Serial troponin were negative. No ischemic changes on ECG. 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 Aspirin was continued. Echo revealed ejection fraction of 55%, right ventricular systolic pressure of 33 with mild left ventricular hypertrophy. Supplemental oxygen and pulmonary toilet provided as needed. Pain management provided. GI followed. CT of the abdomen and pelvis revealed no acute intra-abdominal or pelvic pathology. It showed diverticulosis without diverticulitis. Lipase was trending down. The patient started on diet and able to tolerate it. Stress test was nonischemic with a calculated ejection fraction of 75%. Antiemetic provided as needed. Lipid panel was stable. DVT and GI prophylaxis provided. GI cleared for discharge. Cause of pancreatitis likely chemical. Lipid panel was stable. Recommended gastrointestinal procedure as outpatient. Pain resolved. DISCHARGE DIAGNOSES: 1. Atypical chest pain, likely chest wall pain. 2. Bradycardia with first-degree AV block, resolved. 3. History of porcine aortic valve replacement. 4. Hypertension. 5. Diverticulosis without diverticulitis. 6. Gastroesophageal reflux disease. 7. Fusiform aneurysm of the ascending aorta, stable. DISCHARGE MEDICATIONS: See medications reconciliation list. DISCHARGE INSTRUCTIONS: The patient discharged home. Follow up with primary medical doctor. Rancho Espinal M.D. Angela ParekhMiddletown State HospitalJeff N.PAxel DRHeri Saucedo JOB#: [id number] CC: [facility]
== END 2016-09-29 20:40 | disposition home or self-care (01) | DRG 313 ==
LOC: ENRESERVTM → ENRESERVDT → EDBD 16:47 → EMR 17:43 → 2E 18:20 → EDBEDREQ 18:49
DX: R07.89 Other chest pain (principal); I71.2 Thoracic aortic aneurysm, without rupture; R00.1 Bradycardia, unspecified; I44.0 Atrioventricular block, first degree; K21.9 Gastro-esophageal reflux disease without esophagitis; I10 Essential (primary) hypertension; Z88.0 Allergy status to penicillin; Z95.3 Presence of xenogenic heart valve; K57.90 Diverticulosis of intestine, part unspecified, without perforation or abscess without bleeding
CPT/HCPCS: 36415; 70260; 71010; 71275; 74178; 78452; 80048; 80053; 80061; 82150; 82550; 82553; 83690; 83880; 84443; 84484; 85007; 85025; 85610; 85730; 86140; 93005; 93017; 93306; 94664; J2405